=== PATIENT | male | born 1990 | race Caucasian/White ===

== ENCOUNTER 2023-08-31 03:02 | Emergency (ER) | payer OTHER, SELFPAY ==
[2023-08-31 03:05] VITALS: BP 130/81; PULSE 103; RESP 16; TEMP 36.7; O2SAT 96; BMI 32.3
--- NOTE | 2023-08-31 07:00 | ED_ITS ---
HPI - General Adult General Date Seen: 08/31/23 Chief complaint: Ear/Nose/Throat Problem Stated complaint: Ear Pain - L side Source: patient Mode of arrival: ambulatory Limitations: no limitations History of Present Illness HPI narrative: Patient is a 33-year-old male who has had some cold symptoms for the past 5 or 6 days, the seem to be improving but tonight he developed severe pain in his left ear. He tried ibuprofen couple of hours ago but it did not help. No fevers, chills, vomiting, or other symptoms. No allergies. Patient was seen during downtime, EH are not available. Related Data Home Medications Medication Instructions Recorded Confirmed No Known Home Medications 08/31/23 08/31/23 Allergies Allergy/AdvReac Type Severity Reaction Status Date / Time No Known Drug Allergies Allergy Verified 08/31/23 04:45 PFSH PFS Social History Smoking Status: Never smoker Non-prescribed substance use: denies use Exam Narrative: Exam Narrative: Vital signs as noted above. In general, an alert, well-appearing patient. Head: Normocephalic, atraumatic. Eyes: Pupils are equal reactive. Extraocular movements are full. Conjunctivae are normal. ENT: Mucous membranes are moist. Throat is normal. Right TM is normal. Left is bulging, purulent, landmarks not seen. Neck: Supple without lymphadenopathy. Heart: Regular rate and rhythm. No murmur or rub. Lungs: Clear bilaterally. No increased work of breathing, crackles or wheezes. Neurologic: Patient is alert and oriented to person and place. Speech is fluent. Face is symmetric. Moves all extremities equally. Affect: Normal. Skin: Warm and dry. Well perfused. Const: Vital Signs, click to edit/add: Vital Signs - 24 hr 08/31/23 03:05 Temperature 98.1 F Pulse Rate [Pulse Oximeter] 103 H Respiratory Rate 16 Blood Pressure [Ri ght Upper Arm] 130/81 Pulse Oximetry 96 Oxygen Delivery Me thod Room Air Documenting provider has reviewed patient's vital signs: yes Course Course ED Course: Patient presents with otitis media, discussed that this can be viral or bacterial. I prescribed amoxicillin for him, advised use of ibuprofen and Tylenol over the next couple of days. Return for worsening. See primary care if not improving with this treatment over the next 2-3 days. Vital Signs Vital signs: Initial Vital Signs Temperature 98.1 F 08/31/23 03:05 Temperature Source Temporal Artery Scan 08/31/23 03:05 Pulse Rate 103 H 08/31/23 03:05 Pulse Rhythm Regular 08/31/23 03:05 Respiratory Rate 16 08/31/23 03:05 Blood Pressure 130/81 08/31/23 03:05 Blood Pressure Mean 97 08/31/23 03:05 Pulse Oximetry 96 08/31/23 03:05 Oxygen Delivery Method Room Air 08/31/23 03:05 Vital Signs Temperature 98.1 F 08/31/23 03:05 Pulse Rate 103 H 08/31/23 03:05 Respiratory Rate 16 08/31/23 03:05 Blood Pressure 130/81 08/31/23 03:05 Pulse Oximetry 96 08/31/23 03:05 Oxygen Delivery Method Room Air 08/31/23 03:05 Temperature 98.1 F 08/31/23 03:05 Pulse Rate 103 H 08/31/23 03:05 Respiratory Rate 16 08/31/23 03:05 Blood Pressure 130/81 08/31/23 03:05 Pulse Oximetry 96 08/31/23 03:05 Oxygen Delivery Method Room Air 08/31/23 03:05 Discharge Plan Discharge Clinical Impression: Otitis media Qualifiers: Otitis media type: suppurative Chronicity: acute Laterality: left Recurrence: non-recurrent Spontaneous tympanic membrane rupture: without spontaneous rupture Qualified Code(s): H66.002 - Acute suppurative otitis media without spontaneous rupture of ear drum, left ear Condition: Stable Additional Instructions: Return for worsening, primary care follow-up as needed if not improved over the next 2-3 days. Amoxicillin as prescribed. Ibuprofen 400 mg plus Tylenol 1000 mg 3 times daily. Prescriptions: No Action No Known Home Medications Follow Up/Referrals: Provider,Not a Local [Primary Care Provider] - Stand Alone Forms: [employer] Info Instructions
== END 2023-08-31 03:44 | disposition home or self-care (01) ==
PROVIDERS: Emergency Provider Emergency Medicine
DX: H66.002 Acute suppurative otitis media without spontaneous rupture of ear drum, left ear (principal)
CPT/HCPCS: 99283